=== PATIENT | male | born 1970 | race Caucasian/White ===

== ENCOUNTER 2016-06-27 19:27 | Emergency (ER) | payer MEDICAID ==
[2016-06-27 19:50] VITALS: RESP 20
--- NOTE | 2016-06-27 20:09 | EDPHY ---
H & P Stated Complaint: worsening back/legs pain Time Seen by Provider: 06/27/16 20:21 HPI/ROS: CHIEF COMPLAINT: Low back pain HISTORY OF PRESENT ILLNESS: This patient is a 45 year old male who presents to the Emergency Department complaining of an exacerbation of his chronic low back pain (attributed to stenosis) beginning two days ago after awkwardly closing the fonseca of his car. He describes his pain as burning and radiating bilaterally to both the anterior and posterior aspects of his thighs. He notes a "fiery" paresthesia to his right foot. No new weakness. He reports difficulty emptying his bladder immediately after the onset of pain and feels that this was secondary to the pain. He denies ongoing urinary complaints and feels that he is emptying his bladder fully. No problems with bowel control. No diarrhea, vomiting, or recent fever. He treats his chronic pain with IR morphine and oxycodone BID which had effectively alleviated his pain prior to this recent exacerbation. He also takes valium regularly. He is followed by a physician at [facility]. REVIEW OF SYSTEMS: A ten point review of systems was performed and is negative with the exception of the items mentioned in the HPI. 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 Not . He lives with his mother. - Physical Exam Exam: General Appearance: Alert. Vital signs reviewed. Blood pressure 140/83 Eyes: Pupils equal and round, no conjunctival injection, no discharge. Anicteric. ENT, Mouth: Mucous membranes are moist, no oropharyngeal erythema or edema. Neck: No lymphadenopathy, supple. Respiratory: Lungs are clear to auscultation; no wheezes, rales, or rhonchi. Cardiovascular: Regular rate and rhythm; no murmur, rub, or gallop. Gastrointestinal: Abdomen is soft and nontender, no masses or organomegaly, bowel sounds normal. Skin: Warm and dry, no rashes on exposed skin, normal color. Back: Lumbar spine tenderness to palpation that extends across back at the level of his waist. No bony point tenderness. No CVAT. Extremities: No lower extremity edema, no calf tenderness or swelling. Neurological: Alert and oriented. Moving all four extremities equally. Strength is 5 over 5 bilaterally with testing of all major motor groups. Decreased light touch lateral right thigh; sensation is otherwise intact. Deep tendon reflexes are 2+ in the knees and 1+ in the ankles bilaterally. No clonus. Psychiatric: Normal affect. Constitutional: Initial Vital Signs Temperature (C) 37.1 C 06/27/16 19:47 Heart Rate 85 06/27/16 19:47 Respiratory Rate 20 06/27/16 19:47 Blood Pressure 140/83 H 06/27/16 19:47 O2 Sat (%) 95 06/27/16 19:47 O2 Delivery Mode Room Air Allergies/Adverse Reactions: No Known Allergies Allergy (Unverified 06/27/16 19:45) Home Medications: Medication Instructions Recorded morphINE IR [morphINE IR 30 mg 30 mg PO 07/07/12 (RX)] Morphine Sulfate Cr 03/30/15 Valium 03/30/15 methylPREDNISolone [Medrol Dose 4 mg PO AD #1 ea 06/27/16 Andres] Medical Decision Making ED Course/Re-evaluation: Will proceed with bedside ultrasound of the bladder to ensure that the patient is emptying his bladder fully. Minimal post void residual. I discussed with the patient my recommendation for a Medrol dose pack and continue taking his Valium and pain medications as prescribed. He is agreeable to this. Neurologic exam is normal with the exception of a slight decrease in light touch over his lateral right foot. There is no weakness. I do not think that imaging is needed today. Differential Diagnosis: DDX of back pain considered including but not limited to musculoskeletal back pain, herniated disc, radiculopathy, infection, UTI, ureterolithiasis. Departure - Departure Disposition: Home, Routine, Self-Care Clinical Impression: Chronic low back pain Condition: Good Instructions: Chronic Back Pain (ED) Additional Instructions: 1. Take the Medrol dose pack as prescribed. 2. Follow-up with Dr. Huber this week for further evaluation. 3. Return to the Emergency Department immediately if you lose control of your bowels or urinate on yourself, are unable to walk or find yourself dragging one or both of your feet when attempting to do so, are unable to have an erection, or if you experience severe, uncontrollable back pain. Referrals: Heidi Huber MD [Primary Care Provider] - As per Instructions Prescriptions: methylPREDNISolone [Medrol Dose Andres] 4 mg PO AD #1 ea Report Scribed for: Danyell Krueger Report Scribed by: Tammie Antonio Date of Report: 06/27/16 Time of Report: 20:24 Physician Review and Approval Statement: 06/27/16 20:09 Portions of this note were transcribed by the pesticide use medical coordinator. I, Dr. Danyell Krueger, personally performed the history, physical exam, and medical decision- making; and confirmed the accuracy of the information in the transcribed note.
[2016-06-27 21:11] VITALS: BP 140/72; PULSE 71; TEMP 98.1; O2SAT 94
== END 2016-06-27 21:11 | disposition home or self-care (01) ==
DX: M54.5 Low back pain (principal); G89.29 Other chronic pain; F17.200 Nicotine dependence, unspecified, uncomplicated

== ENCOUNTER 2016-11-14 12:06 | Day surgery (SDC) | payer MEDICAID ==
[~2016-11-14 12:06] MED LIST: NS 1,000 ML IV SCH
[2016-11-14] MEDS ORDERED: FLUMAZENIL 0.5 MG/5 ML MDV IVP ONE (12:23)
[2016-11-14] MEDS ORDERED: NALOXONE HCL 0.4 MG/ML INJ ONE (12:23)
[2016-11-14] MEDS ORDERED: MIDAZOLAM 2 MG/2 ML VIAL ONE (12:24)
[2016-11-14] MEDS ORDERED: fentaNYL 100 MCG/2 ML INJ ONE (12:24)
[2016-11-14] MEDS ORDERED: TRIAMCINOLONE ACETONIDE 200 MG/5 ML MDV IM ONE (13:48)
[2016-11-14] MEDS ORDERED: IOPAMIDOL (ISOVUE-M 300) 15 ML VIAL ONE (13:48)
== END 2016-11-14 15:04 | disposition home or self-care (01) ==
LOC: FIMAGING 12:06
PROVIDERS: ATTEND Neurological Surgery
PROC: 3E0S33Z Introduction of Anti-inflammatory into Epidural Space, Percutaneous Approach (ICD-10-PCS; principal; 2016-11-14 13:56)
DX: M54.16 Radiculopathy, lumbar region (principal); Z96.652 Presence of left artificial knee joint
CPT/HCPCS: J2250; J2310; J3010; J3301; Q9967

== ENCOUNTER 2018-06-10 13:29 | Emergency (ER) | payer MEDICAID ==
[2018-06-10 13:38] VITALS: BP 130/75
--- NOTE | 2018-06-10 14:26 | EDPHY ---
H & P Stated Complaint: Chronic neck/back pain. Needs more morphine;state appt w/pain mgt Thurs Time Seen by Provider: 06/10/18 14:26 - Personal History Current Tetanus Diphtheria and Acellular Pertussis (TDAP): Yes - Medical/Surgical History Hx Asthma: No Hx Chronic Respiratory Disease: No Hx Diabetes: No Hx Cardiac Disease: No Hx Renal Disease: No Hx Cirrhosis: No Hx Alcoholism: No Hx HIV/AIDS: No Hx Splenectomy or Spleen Trauma: No Other PMH: ARTHRITIS, CHRONIC "JOINT PROBLEMS," SPINAL STENOSIS. chronic back/ neck pain - Social History Smoking Status: Current every day smoker Constitutional: Initial Vital Signs Temperature (C) 36.8 C 06/10/18 13:30 Heart Rate 81 06/10/18 13:30 Respiratory Rate 16 06/10/18 13:30 Blood Pressure 130/75 H 06/10/18 13:30 O2 Sat (%) 96 06/10/18 13:30 O2 Delivery Mode Room Air Allergies/Adverse Reactions: No Known Allergies Allergy (Verified 06/10/18 13:34) Home Medications: Medication Instructions Recorded morphINE IR [morphINE IR 30 mg 30 mg PO TID 07/07/12 (RX)] tiZANidine HCL [Zanaflex 2MG (*)] 2 mg PO 06/10/18 Medical Decision Making ED Course/Re-evaluation: CHIEF COMPLAINT: Requesting refill of chronic pain medicine HISTORY OF PRESENT ILLNESS: 47-year-old male who has chronic neck and lower back pain and even some thoracic pain. He states that he is in between pain doctors. He has an appointment at the [facility] coming up this week. He states that his PCP wrote for some pain meds but only a week's worth and is not comfortable writing for any more pain meds. He is asking me for 120 morphine sulfate 30 mg tablets. He has been without pain meds for several days. REVIEW OF SYSTEMS: A comprehensive 10 system review of systems is otherwise negative aside from elements mentioned in the history of present illness and medical decision making. PHYSICAL EXAM: HR, BP, O2 Sat, RR. Temp noted General Appearance: Alert, well hydrated, appropriate, and non-toxic appearing. Head: Atraumatic without scalp tenderness or obvious injury Eyes: Pupils equal, round, reactive to light and accommodation, EOMI, no trauma , no injection. Ears: Clear bilaterally, no perforation, normal landmarks Nose: Atraumatic, no rhinorrhea, clear. Throat: There is no erythema or exudates, no lesions, normal tonsils, mucus membranes moist. Neck: Supple, 2+ carotid upstroke, nontender, no lymphadenopathy. Respiratory: No retractions, no distress, no wheezes, and no accessory muscle use. Lungs are clear to auscultation bilaterally. Cardiovascular: Regular rate and rhythm, no murmurs, rubs, or gallops. Bilateral carotid, radial, dorsalis pedis, and posterior tibial pulses intact. Good capillary refill all extremities. Gastrointestinal: Abdomen is soft, nontender, non-distended, no masses, no rebound, no guarding, no peritoneal signs. Musculoskeletal: Normal active ROM of all extremities, atraumatic. Neurological: Alert, appropriate, and interactive. The patient has normal DTRs and non-focal cranial nerves, motor, sensory, and cerebellar exam. Skin: No rashes, good turgor, no nodules on palpation. Past medical history: Chronic pain Past surgical history: Noncontributory Family history: Noncontributory Social history: Single, does not abuse tobacco drugs or alcohol DIFFERENTIAL DIAGNOSIS: The differential diagnosis for the patient's back pain included but was not limited to musculo-skeletal pain, epidural abscess, herniated disk, spinal fracture, and intra-abdominal causes including urinary system. MEDICAL DECISION MAKING: This patient has chronic musculoskeletal back pain. He is requesting a chronic pain med refill. I am not comfortable refilling this patient's pain medicine. His primary care physician is not even comfortable refilling his pain medicine. He is asking for an exorbitant amount of medicine. He will have to be managed through the pain clinic and unfortunately he will have to continue doing what he has been able to do the last several days which is to use ibuprofen and [id number] type remedies. Departure - Departure Disposition: Home, Routine, Self-Care Clinical Impression: Medicine refill Condition: Good Instructions: Medicine Refill (ED) Additional Instructions: Keep her appointment with the [facility]. Check in with her PCP tomorrow to see if that person will write you for additional pain medicine.
== END 2018-06-10 14:53 | disposition home or self-care (01) ==
DX: Z76.0 Encounter for issue of repeat prescription (principal); M54.2 Cervicalgia; M54.5 Low back pain; G89.29 Other chronic pain

== ENCOUNTER 2018-07-05 21:04 | Emergency (ER) | payer MEDICAID ==
--- NOTE | 2018-07-05 21:59 | EDPHY ---
H & P Stated Complaint: REPORTS 2 SZ TODAY, DENIES ETOH USE, WEANING OFF PAIN MEDS Time Seen by Provider: 07/05/18 21:48 HPI/ROS: Chief Complaint: Seizure HPI: A 47-year-old male with a history of chronic pain who is currently on only Tinazadine but did take 4 Ultram over the course today. Patient had 2 witnessed episodes of tonic-clonic motor activity and loss of consciousness. These were witnessed by his mother with whom he lives. States that there he was standing in the kitchen this morning in speaking with her. He then rolled his eyes back and began shaking his arms. He fell to the ground and continued to shake briefly and then was unresponsive for a few minutes. He was very confused after this. He then returned to baseline. He had a repeat episode 830 this evening which was very similar. He was standing, rolled his eyes back generalized shaking and fell to the ground. He did hit his head on his initial fall. Does not have a history of seizures in the past. He denies taking anything today other than the 10 as a [place] and the Ultram. No recent illness. No fevers or chills. No nausea or vomiting. Denies any other ingestions. ROS: 10 systems were reviewed and were negative except those elements noted in the HPI. PMH: Chronic pain Social History: No smoking, no alcohol, no recreational drug use Family History: non-contributory Physical Exam: Gen: Awake, Alert, No Distress HEENT: Nose: no rhinorrhea Eyes: PERRLA, EOMI Mouth: Moist mucosa Neck: Supple, no JVD Chest: nontender, lungs clear to auscultation Heart: S1, S2 normal, no murmur Abd: Soft, non-tender, no guarding Back: no CVA tenderness, no midline tenderness Ext: no edema, non-tender Skin: no rash Neuro: CN II-XII intact, Sensation grossly intact, Strength 5/5 in bilateral upper and lower extremities - Personal History Current Tetanus/Diphtheria Vaccine: Unsure Current Tetanus Diphtheria and Acellular Pertussis (TDAP): Unsure - Medical/Surgical History Hx Asthma: No Hx Chronic Respiratory Disease: No Hx Diabetes: No Hx Cardiac Disease: No Hx Renal Disease: No Hx Cirrhosis: No Hx Alcoholism: No Hx HIV/AIDS: No Hx Splenectomy or Spleen Trauma: No Other PMH: ARTHRITIS, CHRONIC "JOINT PROBLEMS," SPINAL STENOSIS. chronic back/ neck pain - Social History Smoking Status: Current every day smoker Constitutional: Initial Vital Signs Temperature (C) 36.7 C 07/05/18 21:07 Heart Rate 102 H 07/05/18 21:07 Respiratory Rate 20 07/05/18 21:07 Blood Pressure 140/84 H 07/05/18 21:07 O2 Sat (%) 90 L 07/05/18 21:07 O2 Delivery Mode Room Air O2 (L/minute) 2 Allergies/Adverse Reactions: No Known Allergies Allergy (Verified 07/05/18 21:12) Home Medications: Medication Instructions Recorded morphINE IR [morphINE IR 30 mg 30 mg PO TID 07/07/12 (RX)] tiZANidine HCL [Zanaflex 2MG (*)] 2 mg PO 06/10/18 levETIRAcetam [Keppra] 500 mg PO BID #60 tablet 07/06/18 Medical Decision Making - Diagnostics Imaging Results: Imaging Impressions Head CT 07/05/18 21:58 Impression: 1. Negative. No acute intracranial hemorrhage, mass, or discernible etiology for seizure activity. 2. 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 Findings discussed with Emergency Department physician, Michael Faria MD at 07/05/2018 22:33. ED Course/Re-evaluation: CT scan of the brain is normal. Laboratory evaluations unremarkable. I have discussed with on-call neurologist have [facility]. He is recommending to check a tox screen. If the tox screen is negative will start the patient on Keppra 500 mg twice a day. Patient will follow up with Neurology for further evaluation for new onset seizures. U tox is negative. Will start the patient on Keppra. Refer for outpatient neurology follow-up. Patient is awake alert here. Observed for 5 hr. No further seizure activity. - Data Points Laboratory Results: Laboratory Results 07/05/18 21:47 07/05/18 21:47 07/06/18 07/05/18 07/05/18 02:30 21:47 21:47 WBC 8.60 10^3/uL 10^3/uL (3.80-9.50) RBC 4.44 10^6/uL 10^6/uL (4.40-6.38) Hgb 14.2 g/dL g/dL (13.7-17.5) Hct 42.7 % % (40.0-51.0) MCV 96.2 fL fL (81.5-99.8) MCH 32.0 pg pg (27.9-34.1) MCHC 33.3 g/dL g/dL (32.4-36.7) RDW 13.3 % % (11.5-15.2) Plt Count 206 10^3/uL 10^3/uL (150-400) MPV 9.7 fL fL (8.7-11.7) Neut % (Auto) 60.1 % % (39.3-74.2) Lymph % (Auto) 27.3 % % (15.0-45.0) [place] % (Auto) 9.1 % % (4.5-13.0) Eos % (Auto) 2.4 % % (0.6-7.6) Baso % (Auto) 0.6 % % (0.3-1.7) Nucleat RBC Rel Count 0.0 % % (0.0-0.2) Absolute Neuts (auto) 5.17 10^3/uL 10^3/uL (1.70-6.50) Absolute Lymphs (auto) 2.35 10^3/uL 10^3/uL (1.00-3.00) Absolute Monos (auto) 0.78 10^3/uL 10^3/uL (0.30-0.80) Absolute Eos (auto) 0.21 10^3/uL 10^3/uL (0.03-0.40) Absolute Basos (auto) 0.05 10^3/uL 10^3/uL (0.02-0.10) Absolute Nucleated RBC 0.00 10^3/uL 10^3/uL (0-0.01) Immature Gran % 0.5 % % (0.0-1.1) Immature Gran # 0.04 10^3/uL 10^3/uL (0.00-0.10) Sodium 138 mEq/L mEq/L (135-145) Potassium 5.0 mEq/L mEq/L (3.5-5.2) Chloride 100 mEq/L mEq/L (97-110) Carbon Dioxide 28 mEq/l mEq/l (22-31) Anion Gap 10 mEq/L mEq/L (6-14) BUN 13 mg/dL mg/dL (7-23) Creatinine 0.7 mg/dL mg/dL (0.7-1.3) Estimated GFR > 60 Glucose 89 mg/dL mg/dL (70-100) Calcium 9.4 mg/dL mg/dL (8.5-10.4) Specimen Hemolysis 178 Urine Opiates Screen NEGATIVE (NEGATIVE) Urine Barbiturates NEGATIVE (NEGATIVE) Ur Phencyclidine Scrn NEGATIVE (NEGATIVE) Ur Amphetamine Screen NEGATIVE (NEGATIVE) U Benzodiazepines Scrn NEGATIVE (NEGATIVE) Urine Cocaine Screen NEGATIVE (NEGATIVE) U Marijuana (THC) Screen NEGATIVE (NEGATIVE) Medications Given: Discontinued Medications Sodium Chloride (Ns) 1,000 mls @ 0 mls/hr IV EDNOW ONE; Wide Open PRN Reason: Protocol Stop: 07/06/18 01:29 Last Admin: 07/06/18 01:00 Dose: 1,000 mls Sodium Chloride (Ns) 1,000 mls @ 0 mls/hr IV EDNOW ONE; Wide Open PRN Reason: Protocol Stop: 07/06/18 01:29 Last Admin: 07/06/18 01:30 Dose: 1,000 mls Departure - Departure Disposition: Home, Routine, Self-Care Clinical Impression: Seizure Condition: Good Instructions: New-Onset Seizure in Adults (ED) Additional Instructions: Please start Keppra 500 mg twice a day. Follow up with neurologist in 3-4 days for further evaluation. Return emergency department for further seizures. Referrals: Kishor Sanon MD [Medical Doctor] - As per Instructions Prescriptions: levETIRAcetam [Keppra] 500 mg PO BID #60 tablet
[2018-07-05 22:16] LABS: PLATELET COUNT 206 10^3/uL (150-400)
[2018-07-06] MEDS ORDERED: NS 1,000 ML IV ONE ×2 (01:28)
[2018-07-06] MEDS ORDERED: levETIRAcetam 500 MG TAB PO ONE (02:47)
[2018-07-06 03:02] VITALS: BP 122/82
== END 2018-07-06 03:01 | disposition home or self-care (01) ==
DX: R56.9 Unspecified convulsions (principal); M19.90 Unspecified osteoarthritis, unspecified site; E86.9 Volume depletion, unspecified; Z79.899 Other long term (current) drug therapy
CPT/HCPCS: 80305

== ENCOUNTER 2018-08-02 11:28 | Emergency (ER) | payer MEDICAID ==
[2018-08-02] MEDS ORDERED: ONDANSETRON 4 MG/2 ML VIAL IVP ONE (11:58)
[2018-08-02] MEDS ORDERED: HYDROmorphONE/DILAUDID 2 MG/ML INJ IVP ONE (11:58)
[2018-08-02] MEDS ORDERED: NS 1,000 ML IV ONE (11:58)
--- NOTE | 2018-08-02 12:03 | EDPHY ---
General Time Seen by Provider: 08/02/18 11:46 Narrative: CLINICAL IMPRESSION: Right lower quadrant abdominal pain, constipation, groin strain ASSESSMENT/PLAN: 47-year-old male presents to the emergency department for approximately 3-4 days of right lower quadrant and inguinal pain. Patient has no clinical signs of incarcerated or strangulated hernia, testicular torsion, testicular mass, and pain is reproducible to palpation along the inguinal canal and worsened by abduction against resistance. Patient admits to straining the inguinal muscles when he has leg spasms at night. Labs are reassuring with no leukocytosis, renal insufficiency, electrolyte imbalance or metabolic disturbance. CT abdomen and pelvis shows no evidence of acute appendicitis, small-bowel obstruction, perforated viscus, or inguinal hernia. Patient was given muscle relaxers for presumed groin strain as well as [id number] recommendations for constipation. Encouraged PCP recheck, referrals given, warning signs return to ED outlined discharge. DIFFERENTIAL DX: Abdominal pain includes but not limited to acute appendicitis, diverticulitis, cholecystitis, pancreatitis, SBO, gastroenteritis, constipation ED PROCEDURES: See lab and/or imaging results below ED COURSE: 12:00 p.m.: Patient seen assessed by myself. Plan, IV, analgesics, antiemetics , labs, CT abdomen and pelvis. 1:20 p.m.: CT read by Dr. Lara, negative for acute appendicitis, inguinal hernia, small bowel obstruction. Moderate amount of right-sided stool noted. No acute surgical emergency. Labs are unremarkable. CHIEF COMPLAINT: Right lower quadrant abdominal and pelvic pain HPI: 47-year-old male with past medical history of arthritis, spinal stenosis, joint pain, and seizures, presents to the emergency department from urgent care for evaluation of right lower quadrant abdominal pain. Patient reports he was having some inguinal pain for the last several weeks that has been getting progressively worse over the last 3-4 days. He has been unable to keep anything down since last night. No reported fevers or chills. Pain does radiate slightly into the right lower pelvis but does not cause him testicular pain or swelling. He notes his abdomen is distended and has not had a bowel movement for the last 4 days. He also reports inability to pass flatus. He reports normally he is relatively regular in his bowel movements. No prior abdominal surgery. He was seen at urgent care and sent immediately to the ED. PAST MEDICAL HISTORY: Arthritis, spinal stenosis, joint pain, seizures See nurse/triage notes for additional history if applicable Pertinent Past Surgical History: None reported Family History: Noncontributory Social History: Here with his family member REVIEW OF SYSTEMS: All other systems negative Constitutional: No fever, no chills, positive for appetite change. Cardiovascular: No chest pain, no palpitations. Respiratory: No cough, no shortness of breath. Gastrointestinal: Positive for right lower quadrant abdominal pain, positive for vomiting, positive for lack of bowel movement and inability to pass flatus diarrhea. Genitourinary: No hematuria, dysuria, flank pain, pelvic pain Musculoskeletal: No back pain, joint swelling, joint pain, myalgias. Skin: No rashes, color change. Neurological: No headache, dizziness, weakness. PHYSICAL EXAM: General Appearance: Alert, oriented, appropriate, cooperative, appears uncomfortable, well hydrated, non-toxic appearing, mild hypertension, no hypoxia. HEENT: Oropharynx clear very dry mucous membranes with thick saliva, is no erythema or exudates, no tonsillar hypertrophy or asymmetry. Dentition without abnormality. Respiratory: There are no retractions, lungs are clear to auscultation. Cardiac: Regular rate and rhythm, no murmurs or gallops. Gastrointestinal: Abdomen is soft, generalized tenderness, worse to the right lower quadrant associated with rebound tenderness. No palpable inguinal hernia or obvious signs of incarceration or strangulation. Generalized abdominal distension but nonrigid. bowel sounds hypoactive no masses/hernia, no rigidity , guarding or focal peritoneal findings. exam. Patient is circumcised. No testicular or scrotal swelling. No palpable inguinal hernia. Reproducible pain along the adductor longus muscle at the insertion point on the pubis. Neurological: [ Alert and oriented x 3, Skin: Warm, dry, no rashes, no nodules on palpation. Musculoskeletal: Extremities are symmetrical, full range of motion, no tenderness, deformity, swelling, or erythema. MEDICAL DECISION MAKING: Patient was seen independently. Secondary supervising physician at time of evaluation was Dr. Law . Diagnosis: Right-sided constipation, right groin strain . New, requires workup Summary: See Assessment and Plan for summary of ED visit Clinical lab tests: ordered / reviewed. Independent visualization of images, tracing, or specimens: Yes. Decision to obtain medical records or history from someone other than the patient: No Review / Summarize previous medical records: None available Discussed patient with another provider: Radiology Patient Progress: Stable for discharge. - Diagnostics Imaging Results: Imaging Impressions Abdomen CT 08/02/18 11:59 Impression: 1. No CT findings for appendicitis. Moderate constipation in the right-sided colon. 2. No evidence for hydronephrosis or ureteral calculus. 3. Mild degenerative disk and degenerative joint disease in the lower lumbar spine. Results called and discussed with Yung Rand on 08/02/2018, 1325 hours. - History Smoking Status: Current every day smoker - Objective Vital Signs: Initial Vital Signs Temperature (C) 36.8 C 08/02/18 11:33 Heart Rate 96 08/02/18 11:33 Respiratory Rate 16 08/02/18 11:33 Blood Pressure 134/95 H 08/02/18 11:33 O2 Sat (%) 96 08/02/18 11:33 O2 Delivery Mode Room Air O2 (L/minute) 2 Allergies/Adverse Reactions: No Known Allergies Allergy (Verified 08/02/18 11:32) Home Medications: Medication Instructions Recorded tiZANidine HCL [Zanaflex 2MG (*)] 2 mg PO 06/10/18 levETIRAcetam [Keppra] 500 mg PO BID #60 tablet 07/06/18 Aspirin 08/02/18 Benadryl 08/02/18 Cyclobenzaprine [Flexeril] 10 mg PO TID #15 tab 08/02/18 Tylenol 08/02/18 Laboratory Results: Laboratory Results 08/02/18 11:50 08/02/18 11:50 08/02/18 08/02/18 11:50 11:50 WBC 8.75 10^3/uL 10^3/uL (3.80-9.50) RBC 4.88 10^6/uL 10^6/uL (4.40-6.38) Hgb 15.8 g/dL g/dL (13.7-17.5) Hct 47.1 % % (40.0-51.0) MCV 96.5 fL fL (81.5-99.8) MCH 32.4 pg pg (27.9-34.1) MCHC 33.5 g/dL g/dL (32.4-36.7) RDW 13.2 % % (11.5-15.2) Plt Count 201 10^3/uL 10^3/uL (150-400) MPV 9.5 fL fL (8.7-11.7) Neut % (Auto) 62.9 % % (39.3-74.2) Lymph % (Auto) 25.5 % % (15.0-45.0) [place] % (Auto) 8.2 % % (4.5-13.0) Eos % (Auto) 2.3 % % (0.6-7.6) Baso % (Auto) 0.6 % % (0.3-1.7) Nucleat RBC Rel Count 0.0 % % (0.0-0.2) Absolute Neuts (auto) 5.51 10^3/uL 10^3/uL (1.70-6.50) Absolute Lymphs (auto) 2.23 10^3/uL 10^3/uL (1.00-3.00) Absolute Monos (auto) 0.72 10^3/uL 10^3/uL (0.30-0.80) Absolute Eos (auto) 0.20 10^3/uL 10^3/uL (0.03-0.40) Absolute Basos (auto) 0.05 10^3/uL 10^3/uL (0.02-0.10) Absolute Nucleated RBC 0.00 10^3/uL 10^3/uL (0-0.01) Immature Gran % 0.5 % % (0.0-1.1) Immature Gran # 0.04 10^3/uL 10^3/uL (0.00-0.10) Sodium 138 mEq/L mEq/L (135-145) Potassium 3.8 mEq/L mEq/L (3.5-5.2) Chloride 102 mEq/L mEq/L (97-110) Carbon Dioxide 27 mEq/l mEq/l (22-31) Anion Gap 9 mEq/L mEq/L (6-14) BUN 19 mg/dL mg/dL (7-23) Creatinine 0.9 mg/dL mg/dL (0.7-1.3) Estimated GFR > 60 Glucose 75 mg/dL mg/dL (70-100) Calcium 9.6 mg/dL mg/dL (8.5-10.4) Medications Given: Discontinued Medications Hydromorphone HCl (Dilaudid) 1 mg IVP EDNOW ONE Stop: 08/02/18 11:59 Last Admin: 08/02/18 12:31 Dose: 1 mg Sodium Chloride (Ns) 1,000 mls @ 0 mls/hr IV EDNOW ONE; Wide Open PRN Reason: Protocol Stop: 08/02/18 11:59 Last Admin: 08/02/18 12:30 Dose: 1,000 mls Ondansetron HCl (Zofran) 4 mg IVP EDNOW ONE Stop: 08/02/18 11:59 Last Admin: 08/02/18 12:31 Dose: 4 mg Departure - Departure Disposition: Home, Routine, Self-Care Clinical Impression: Constipation Qualifiers: Constipation type: other constipation type Qualified Code(s): K59.09 - Other constipation Inguinal muscle strain Qualifiers: Encounter type: initial encounter Qualified Code(s): S39.013A - Strain of muscle, fascia and tendon of pelvis, initial encounter Condition: Good Instructions: Constipation (ED) Additional Instructions: DISCHARGE INSTRUCTIONS FROM YOUR DOCTOR Thank you for visiting our emergency department today. You were treated by a physician nurses medical assistants phlebotomists today and your case was reviewed with our ED Attending physician. Please keep in mind that discharge from the emergency department does not mean that there is nothing wrong - it simply means that we have not identified an emergency condition that requires further evaluation or treatment in the hospital. You should always plan to follow up with primary care for re- evaluation of your condition in the next 2-3 days. If you have been referred to a specialist, please call as soon as possible (today or tomorrow) to schedule your follow up appointment at the appropriate time. [CT SCAN TODAY SHOWS NO EVIDENCE OF ACUTE APPENDICITIS, INGUINAL HERNIA, BOWEL OBSTRUCTION, OR OTHER ACUTE SURGICAL EMERGENCY. YOU DO HAVE A SIGNIFICANT AMOUNT OF STOOL ON THE RIGHT SIDE OF THE COLON WHICH COULD BE CAUSING YOUR DISCOMFORT. LAB WORK IS REASSURING. NO CLINICAL EVIDENCE OF TESTICULAR TORSION OR TESTICULAR MASS. WE RECOMMEND TRYING MIRALAX, INCREASING YOUR FIBER , FRUITS, VEGETABLES, WATER AND EXERCISE. PLEASE FOLLOW-UP WITH PRIMARY CARE IN 24 HR TO RECHECK. IF YOU DO NOT HAVE A PRIMARY CARE REFERRAL WAS GIVEN. PLEASE RETURN TO THE EMERGENCY DEPARTMENT FOR WORSENING PAIN, TESTICULAR PAIN, SWELLING OR REDNESS, FEVER OR ANY OTHER CONCERNS.] People present with illnesses and injuries in different ways, and it is always possible that we have missed something. You may always return for re-evaluation if symptoms worsen or if they are not improving or if you develop new/different symptoms. Again, thank you for choosing our emergency department. We hope that you feel better. Referrals: NONE *PRIMARY CARE P,. [Primary Care Provider] - As per Instructions Massimo Webb MD [Medical Doctor] - 1 day without fail Prescriptions: Cyclobenzaprine [Flexeril] 10 mg PO TID #15 tab
[2018-08-02 12:04] LABS: PLATELET COUNT 201 10^3/uL (150-400)
[2018-08-02] MEDS ORDERED: IOPAMIDOL (ISOVUE-300) 100 ML BTL ONE (12:05)
[2018-08-02] MEDS ORDERED: HYDROmorphONE/DILAUDID 1 MG/ML INJ ONE (12:27)
[2018-08-02 13:51] VITALS: BP 122/83
== END 2018-08-02 13:53 | disposition home or self-care (01) ==
LOC: SUPCPDRO 11:28
DX: S39.013A Strain of muscle, fascia and tendon of pelvis, initial encounter (principal); K59.09 Other constipation; X58.XXXA Exposure to other specified factors, initial encounter; Y92.9 Unspecified place or not applicable; Y99.9 Unspecified external cause status; Y93.9 Activity, unspecified
CPT/HCPCS: 96374; J1170; J2405; Q9967

== ENCOUNTER → 2018-08-07 | Outpatient (CLI) | payer MEDICAID ==
[~2018-08-07] MED LIST changes: +GADOBUTROL 10 ML VIAL IVP ONE; -NS 1,000 ML IV SCH
== END ==
LOC: FIMAGING 15:36
PROVIDERS: ATTEND Psychiatry & Neurology Neurology
DX: R56.9 Unspecified convulsions (principal)
CPT/HCPCS: A9585

== ENCOUNTER 2018-11-10 17:19 | Inpatient (IN) | payer MEDICAID ==
--- NOTE | 2018-11-10 17:27 | EDPHY ---
H & P Stated Complaint: Hx seizures, 5 "grand mal" today starting at 0330, BIB friend for eval. Time Seen by Provider: 11/10/18 17:26 - Medical/Surgical History Hx Asthma: No Hx Chronic Respiratory Disease: No Hx Diabetes: No Hx Cardiac Disease: No Hx Renal Disease: No Hx Cirrhosis: No Hx Alcoholism: No Hx HIV/AIDS: No Hx Splenectomy or Spleen Trauma: No Other PMH: ARTHRITIS, CHRONIC "JOINT PROBLEMS," SPINAL STENOSIS, seizures, chronic back/neck pain - Social History Smoking Status: Current every day smoker Constitutional: Initial Vital Signs Temperature (C) 37.2 C 11/10/18 17:23 Heart Rate 120 H 11/10/18 17:23 Respiratory Rate 18 11/10/18 17:23 Blood Pressure 137/88 H 11/10/18 17:23 O2 Sat (%) 94 11/10/18 17:23 O2 Delivery Mode Nasal Cannula O2 (L/minute) 3 Allergies/Adverse Reactions: No Known Allergies Allergy (Verified 08/02/18 11:32) Home Medications: Medication Instructions Recorded Acetaminophen [Tylenol ES 500 mg 500 - 1,000 mg PO Q8H PRN 11/10/18 (*)] Herbals/Supplements -Info Only 1 ea PO DAILY 11/10/18 levETIRAcetam [Keppra 500 mg (*)] 500 mg PO BID 11/10/18 Medical Decision Making - Diagnostics Imaging Results: Imaging Impressions Head CT 11/10/18 17:37 Impression: There is no acute intracranial abnormality identified on this unenhanced CT evaluation, or substantial change from previous studies in June or July. If there is further clinical concern regarding the patient's symptoms, MR imaging is suggested, if not otherwise contraindicated. Findings were discussed with Anthony Buenrostro MD at 19:22, on 11/10/2018. Imaging: Discussed imaging studies w/ geriatric assistant Radiologist, I viewed and interpreted images myself ED Course/Re-evaluation: CHIEF COMPLAINT: Seizure HISTORY OF PRESENT ILLNESS: The patient is a 48 y/o male with a history of seizures complaining of 5 "grand mal" seizures onset at 03:30 today. The patient started having seizures in June 2018 and was seen here and started on 500mg PO Keppra BID. After the seizure he was seen by Dr. Sanon and had a negative work up including numerous imaging studies. Today he has had five "grand mal" seizures and hit his head. He denies drugs or alcohol use. No fever, headache, body aches, lightheadedness, chest pain, heart palpitations, shortness of breath, cough, abdominal pain, urinary or bowel complaints, numbness, paresthesias. REVIEW OF SYSTEMS: A comprehensive 10 system review of systems is otherwise negative aside from elements mentioned in the history of present illness and medical decision making. PHYSICAL EXAM: HR, BP, O2 Sat, RR. Temp noted General Appearance: Tremulous right greater than left, alert, well hydrated, appropriate, and non-toxic appearing. Head: Atraumatic without scalp tenderness or obvious injury Eyes: Pupils equal, round, reactive to light and accommodation, EOMI, no trauma , no injection. Ears: Clear bilaterally, no perforation, normal landmarks Nose: Atraumatic, no rhinorrhea, clear. Throat: There is no erythema or exudates, no lesions, normal tonsils, mucus membranes moist. Neck: Supple, 2+ carotid upstroke, nontender, no lymphadenopathy. Respiratory: No retractions, no distress, no wheezes, and no accessory muscle use. Lungs are clear to auscultation bilaterally. Cardiovascular: Regular rate and rhythm, no murmurs, rubs, or gallops. Bilateral carotid, radial, dorsalis pedis, and posterior tibial pulses intact. Good capillary refill all extremities. Gastrointestinal: Abdomen is soft, nontender, non-distended, no masses, no rebound, no guarding, no peritoneal signs. Musculoskeletal: Normal active ROM of all extremities, atraumatic. Neurological: Alert, appropriate, and interactive. The patient has normal DTRs and non-focal cranial nerves, motor, sensory, and cerebellar exam. Skin: No rashes, good turgor, no nodules on palpation. Past medical history: Seizures, arthritis, spinal stenosis, chronic neck and back pain. Past surgical history: Not indicated Family history: Denies Social history: Lives in [place], single, does not abuse drugs or alcohol. DIAGNOSTICS/PROCEDURES/CRITICAL CARE TIME: Head CT: Negative. DIFFERENTIAL DIAGNOSIS: The differential diagnosis for the patient's seizure included but was not limited to status epilepticus, electrolyte abnormality, alcohol withdrawal, medication noncompliance, head injury, [employer] structural abnormality, and break through seizure. MEDICAL DECISION MAKING: The patient is a 48 y/o male with a history of seizures presenting for 5 "grand mal" seizures onset at 03:30 today. The patient started having seizures in June 2018 and was seen here and started on 500mg PO Keppra BID. After the seizure he was seen by Dr. Sanon and had a negative work up including numerous imaging studies. On exam he is tremulous, right greater than left. Labs ordered; 2mg IV Ativan and 1L IV NS administered. Patient will need to be admitted for status epilepticus. 1736: I consulted with the hospitalist service, Dr. Caldwell accepts admission of this patient for status epilepticus. Head CT ordered; neurology consult still pending. 173: Patient reports he is having another seizure; question PNES as he is awake during the seizure. 1741: I consulted with Dr. South, neurologist, regarding this patient. He agrees to consult on this patient during his admission. 1gm IV Keppra administered. Patient will need to increase his Keppra dosage to 1gm BID. 1840: Patient's labs are unremarkable; imaging still pending. He is ready to be transferred to the floor. 1926: I spoke with Dr. Gomes, radiologist, who reports that the head CT is negative. - Data Points Laboratory Results: Laboratory Results 11/10/18 17:30 11/10/18 17:30 11/10/18 11/10/18 11/10/18 17:52 17:30 17:30 WBC RBC Hgb POC Hgb 15.6 gm/dL gm/dL (13.7-17.5) Hct POC Hct 46 % % (40-51) MCV MCH MCHC RDW Plt Count MPV Neut % (Auto) Lymph % (Auto) [place] % (Auto) Eos % (Auto) Baso % (Auto) Nucleat RBC Rel Count Absolute Neuts (auto) Absolute Lymphs (auto) Absolute Monos (auto) Absolute Eos (auto) Absolute Basos (auto) Absolute Nucleated RBC Immature Gran % Immature Gran # POC Sodium 143 mEq/L mEq/L (135-145) Sodium 141 mEq/L mEq/L (135-145) POC Potassium 3.3 mEq/L mEq/L (3.3-5.0) Potassium 3.6 mEq/L mEq/L (3.5-5.2) POC Chloride 98 mEq/L mEq/L (97-110) Chloride 99 mEq/L mEq/L (97-110) Carbon Dioxide 30 mEq/l mEq/l (22-31) POC Total CO2 31 mEq/L mEq/L (22-31) Anion Gap 12 mEq/L mEq/L (6-14) POC BUN 19 mg/dL mg/dL (7-23) BUN 19 mg/dL mg/dL (7-23) Creatinine 0.9 mg/dL mg/dL (0.7-1.3) POC Creatinine 1.0 mg/dL mg/dL (0.7-1.3) Estimated GFR > 60 Glucose 87 mg/dL mg/dL (70-100) POC Glucose 83 mg/dL mg/dL (70-100) Calcium 9.8 mg/dL mg/dL (8.5-10.4) TSH 2.450 uIU/mL uIU/mL (0.465-4.680) 11/10/18 17:30 WBC 10.65 10^3/uL H 10^3/uL (3.80-9.50) RBC 4.60 10^6/uL 10^6/uL (4.40-6.38) Hgb 14.8 g/dL g/dL (13.7-17.5) POC Hgb Hct 43.4 % % (40.0-51.0) POC Hct MCV 94.3 fL fL (81.5-99.8) MCH 32.2 pg pg (27.9-34.1) MCHC 34.1 g/dL g/dL (32.4-36.7) RDW 12.8 % % (11.5-15.2) Plt Count 216 10^3/uL 10^3/uL (150-400) MPV 9.2 fL fL (8.7-11.7) Neut % (Auto) 57.4 % % (39.3-74.2) Lymph % (Auto) 27.6 % % (15.0-45.0) [place] % (Auto) 11.5 % % (4.5-13.0) Eos % (Auto) 2.3 % % (0.6-7.6) Baso % (Auto) 0.7 % % (0.3-1.7) Nucleat RBC Rel Count 0.0 % % (0.0-0.2) Absolute Neuts (auto) 6.11 10^3/uL 10^3/uL (1.70-6.50) Absolute Lymphs (auto) 2.94 10^3/uL 10^3/uL (1.00-3.00) Absolute Monos (auto) 1.23 10^3/uL H 10^3/uL (0.30-0.80) Absolute Eos (auto) 0.25 10^3/uL 10^3/uL (0.03-0.40) Absolute Basos (auto) 0.07 10^3/uL 10^3/uL (0.02-0.10) Absolute Nucleated RBC 0.00 10^3/uL 10^3/uL (0-0.01) Immature Gran % 0.5 % % (0.0-1.1) Immature Gran # 0.05 10^3/uL 10^3/uL (0.00-0.10) POC Sodium Sodium POC Potassium Potassium POC Chloride Chloride Carbon Dioxide POC Total CO2 Anion Gap POC BUN BUN Creatinine POC Creatinine Estimated GFR Glucose POC Glucose Calcium TSH Medications Given: Discontinued Medications Sodium Chloride (Ns) 1,000 mls @ 0 mls/hr IV EDNOW ONE; Wide Open PRN Reason: Protocol Stop: 11/10/18 17:32 Last Admin: 11/10/18 17:46 Dose: 1,000 mls Levetiracetam (Keppra (Premix)) 100 mls @ 400 mls/hr IV EDNOW ONE Stop: 11/10/18 17:56 Last Admin: 11/10/18 17:59 Dose: 100 mls Lorazepam (Ativan Injection) 2 mg IVP EDNOW ONE Stop: 11/10/18 17:32 Last Admin: 11/10/18 17:42 Dose: 2 mg Point of Care Test Results: Chemistry 11/10/18 17:52 POC Sodium 143 mEq/L mEq/L (135-145) POC Potassium 3.3 mEq/L mEq/L (3.3-5.0) POC Chloride 98 mEq/L mEq/L (97-110) POC Total CO2 31 mEq/L mEq/L (22-31) POC BUN 19 mg/dL mg/dL (7-23) POC Creatinine 1.0 mg/dL mg/dL (0.7-1.3) POC Glucose 83 mg/dL mg/dL (70-100) ISTAT H&H 11/10/18 17:52 POC Hgb 15.6 gm/dL gm/dL (13.7-17.5) POC Hct 46 % % (40-51) Departure - Departure Disposition: [facility] Inpatient Acute Clinical Impression: Status epilepticus Condition: Fair Referrals: eFlicita Blanchard MD [Primary Care Provider] - As per Instructions Report Scribed for: Anthony Buenrostro Report Scribed by: Nohelia Vivar Date of Report: 11/10/18 Time of Report: 17:27
[2018-11-10] MEDS ORDERED: LORazepam 2 MG/ML INJ IVP ONE (17:31)
[2018-11-10] MEDS ORDERED: NS 1,000 ML IV ONE (17:31)
[2018-11-10] MEDS ORDERED: levETIRAcetam 500 MG TAB PO ONE (17:34)
[2018-11-10] MEDS ORDERED: levETIRAcetam 1000MG/NACL 100 ML IV ONE (17:42)
[2018-11-10 17:46] LABS: PLATELET COUNT 216 10^3/uL (150-400)
[2018-11-10] MEDS ORDERED: LORazepam 2 MG/ML INJ ONE (17:53)
[2018-11-10] MEDS ORDERED: ONDANSETRON DISINTEGRATING 4 MG TAB PO PRN (18:33)
[2018-11-10] MEDS ORDERED: ONDANSETRON 4 MG/2 ML VIAL IVP PRN (18:33)
--- NOTE | 2018-11-10 18:34 | PDGENHP ---
History and Physical - Chief Complaint seizures - History of Present Illness 48yo M with history of chronic pain related to spinal degenerative disk disease , ? seizure disorder presents after having 5 seizures today. He is somewhat of a poor historian. States he was taking his dog out in his backyard and next thing he knew he was on the ground. He had hit his forehead. Did not lose control of bladder or bowels or have any tongue biting. Reportedly then had 4 additional similar episodes. Two were witnessed by his mother's friend and reported convulsive activity. She then brought him to the ED. He denies etoh or illicit drug use. No recent fevers, chills, or other infectious symptoms. Reports taking his keppra twice daily. He then admits that he has been having 3 "seizures" per week since June, when his first seizure was diagnosed. He has not told any medical providers about this. He is being admitted for further evaluation and management. Case discussed with ED physician Anthony Buenrostro. His first seizure was in June 2018 at which time he was evaluated in our ED. He had a non-con head CT that was negative. Neurology was consulted and started on keppra 500mg bid. He did see Dr Sanon once in June after his first seizure and had a brain MRI that was unremarkable. He has not had an EEG. Notably, he was just started on tramadol prior to his first seizure. He continues to tramadol several times per week. On review of PDMP, he has not been prescribed opioids or benzos since 04/2018 (was previously on MS contin, suboxone, valium). Upon arrival to the floor, patient admitted that he has been having suicidal and homicidal ideation for several weeks. He reports that he wants to kill his pain doctor that is no longer prescribing him pain meds and then by suicide by manager endoscopy. A stat TLC was called overhead. He will be transferring to the ICU and an M1 hold was placed due to danger to self and others. History Information - Allergies/Home Medication List Allergies/Adverse Reactions: No Known Allergies Allergy (Verified 08/02/18 11:32) Home Medications: Acetaminophen [Tylenol ES 500 mg (*)] 500 - 1,000 mg PO Q8H PRN 11/10/18 [Last Taken 11/09/18] Herbals/Supplements -Info Only 1 ea PO DAILY 11/10/18 [Last Taken 11/10/18] levETIRAcetam [Keppra 500 mg (*)] 500 mg PO BID 11/10/18 [Last Taken 11/10/18 09 :00] I have personally reviewed and updated: family history, medical history, social history, surgical history - Past Medical History Additional medical history: chronic pain with opioid dependence, spinal degenerative disk disease, prediabetes, ? seronegative spondyloarthropathy, ? seizure disorder - Surgical History Additional surgical history: left knee surgery - Family History Positive for: non-pertinent - Social History Smoking Status: Current every day smoker Alcohol Use: Sober (15 years) Drug Use: None Additional social history: Lives with his mother. Review of Systems Review of Systems: ROS: 10pt was reviewed & negative except for what was stated in HPI & below Physical Exam Physical Exam: Temp Pulse Resp BP Pulse Ox 37.2 C 114 H 20 137/88 H 92 11/10/18 17:23 11/10/18 18:01 11/10/18 18:01 11/10/18 17:23 11/10/18 18:01 O2 (L/minute) 3 Constitutional: uncomfortable Eyes: other (pupils dilated but symmetric and reactive) Ears, Nose, Mouth, Throat: moist mucous membranes, hearing normal, ears appear normal, no oral mucosal ulcers Cardiovascular: no murmur, rub, or gallop, tachycardia, No edema Respiratory: no respiratory distress, no rales or rhonchi, clear to auscultation Gastrointestinal: normoactive bowel sounds, soft, non-tender abdomen, no palpable masses Genitourinary: no bladder fullness, no bladder tenderness Skin: warm, normal color, no rashes or abrasions, no fluctuance, no induration, No mottled Musculoskeletal: other (apparent volition weakness of all extremities) Neurologic: AAOx3, other (severely tremulous) Psychiatric: anxious Lab Data & Imaging Review 11/10/18 17:30 11/10/18 17:30 WBC 10.65 10^3/uL (3.80-9.50) H 11/10/18 17:30 RBC 4.60 10^6/uL (4.40-6.38) 11/10/18 17:30 Hgb 14.8 g/dL (13.7-17.5) 11/10/18 17:30 POC Hgb 15.6 gm/dL (13.7-17.5) 11/10/18 17:52 Hct 43.4 % (40.0-51.0) 11/10/18 17:30 POC Hct 46 % (40-51) 11/10/18 17:52 MCV 94.3 fL (81.5-99.8) 11/10/18 17:30 MCH 32.2 pg (27.9-34.1) 11/10/18 17:30 MCHC 34.1 g/dL (32.4-36.7) 11/10/18 17:30 RDW 12.8 % (11.5-15.2) 11/10/18 17:30 Plt Count 216 10^3/uL (150-400) 11/10/18 17:30 MPV 9.2 fL (8.7-11.7) 11/10/18 17:30 Neut % (Auto) 57.4 % (39.3-74.2) 11/10/18 17:30 Lymph % (Auto) 27.6 % (15.0-45.0) 11/10/18 17:30 Traverse % (Auto) 11.5 % (4.5-13.0) 11/10/18 17:30 Eos % (Auto) 2.3 % (0.6-7.6) 11/10/18 17:30 Baso % (Auto) 0.7 % (0.3-1.7) 11/10/18 17:30 Nucleat RBC Rel Count 0.0 % (0.0-0.2) 11/10/18 17:30 Absolute Neuts (auto) 6.11 10^3/uL (1.70-6.50) 11/10/18 17:30 Absolute Lymphs (auto) 2.94 10^3/uL (1.00-3.00) 11/10/18 17:30 Absolute Monos (auto) 1.23 10^3/uL (0.30-0.80) H 11/10/18 17:30 Absolute Eos (auto) 0.25 10^3/uL (0.03-0.40) 11/10/18 17:30 Absolute Basos (auto) 0.07 10^3/uL (0.02-0.10) 11/10/18 17:30 Absolute Nucleated RBC 0.00 10^3/uL (0-0.01) 11/10/18 17:30 Immature Gran % 0.5 % (0.0-1.1) 11/10/18 17:30 Immature Gran # 0.05 10^3/uL (0.00-0.10) 11/10/18 17:30 POC Sodium 143 mEq/L (135-145) 11/10/18 17:52 Sodium 141 mEq/L (135-145) 11/10/18 17:30 POC Potassium 3.3 mEq/L (3.3-5.0) 11/10/18 17:52 Potassium 3.6 mEq/L (3.5-5.2) 11/10/18 17:30 POC Chloride 98 mEq/L (97-110) 11/10/18 17:52 Chloride 99 mEq/L (97-110) 11/10/18 17:30 Carbon Dioxide 30 mEq/l (22-31) 11/10/18 17:30 POC Total CO2 31 mEq/L (22-31) 11/10/18 17:52 Anion Gap 12 mEq/L (6-14) 11/10/18 17:30 POC BUN 19 mg/dL (7-23) 11/10/18 17:52 BUN 19 mg/dL (7-23) 11/10/18 17:30 Creatinine 0.9 mg/dL (0.7-1.3) 11/10/18 17:30 POC Creatinine 1.0 mg/dL (0.7-1.3) 11/10/18 17:52 Estimated GFR > 60 11/10/18 17:30 Glucose 87 mg/dL (70-100) 11/10/18 17:30 POC Glucose 83 mg/dL (70-100) 11/10/18 17:52 Calcium 9.8 mg/dL (8.5-10.4) 11/10/18 17:30 Interpretation: CT head: no acute abnormality Assessment & Plan Assessment: 48yo M with history of chronic pain related to spinal degenerative disk disease , ? seizure disorder presents after having 5 reported seizures today. Now in ICU due to SI/HI. Plan: 1. Possible seizures: I am not convinced that he is truly having seizures. CT head and prior brain MRI unremarkable except for benign arachnoid cyst. Non- focal neurologic exam. Benzo or alcohol withdrawal a possibility but he denies. - Neurology consulted - s/p 500mg IV keppra in ED, will continue keppra 500mg bid - Checking keppra level - Utox, serum ethyl alcohol level - Needs spot EEG - Ativan IV PRN for active seizures 2. Suicidal and homicidal ideation: He contracts for safety while in the hospital but plans to kill his prior pain doctor and then via suicide by manager endoscopy if he leaves. - M1 hold in place, transferred to ICU - Psychiatry consult 3. Chronic pain with opioid dependence - No opioids or benzos (except for seizure) - Tylenol, ibuprofen PRN 4. Anxiety - Will likely need to be started on medications for this while hospitalized VTE ppx: SCDs Code: full Dispo: admit to ICU I spent a total of 30 minutes of critical care time involving this patient.
[2018-11-10] MEDS ORDERED: NS 1,000 ML IV SCH (18:45)
[2018-11-10] MEDS ORDERED: LORazepam 2 MG/ML INJ IVP PRN (20:01)
--- NOTE | 2018-11-10 21:40 | ASMTLCPROG ---
Notes Note: Notes: PT was listed as moderate/severe risk on [facility] assess. Per protocol [place] sclae was done, physician concurred with scale and wanted pt placed on an hold and full psychiatric evaluation to before pt leaves the hospital. Pt reported a previous hanging attempt in March 2018. that was interupted but he has not recieved any MH interventions, or seen a therapist. Pt reports active thoughts of wanting to and killing himself as well as active HI/SI thoughts and plan to kill the physican who dc'd him from chronic pain mgmt and then force a sucide by asbestos microscopist situation. Pt does not know that he will not be recieving any narcotics yet and is emotional, dramatic, and impulsive. A TLC eval will need to be completed prior to DC; additionally there may be an ethical duty to warn situation. Date Signed: 11/10/2018 09:39 PM Electronically Signed By:Biju Garcia
[2018-11-10] MEDS: levETIRAcetam 500 MG TAB PO SCH (21:54)
[2018-11-11] MEDS: IBUPROFEN 200 MG TAB PO PRN ×3 (08:40→23:16)
[2018-11-11] MEDS: ACETAMINOPHEN 325 MG TAB PO PRN ×2 (08:40→13:46)
[2018-11-11] MEDS: levETIRAcetam 500 MG TAB PO SCH (08:41)
[2018-11-11] MEDS ORDERED: Herbals/Supplements -Info Only PO SCH (09:00)
--- NOTE | 2018-11-11 11:02 | NEUROPROG ---
Assessment: [id number] - Neurology Consult: - CC: Dr. Caldwell consulted neurology for seizure. Results placed in EMR for his review. - HPI: 11/11/18: Pt with possible seizure disorder on Keppra 500 mg bid followed by my partner, Dr. Kishor Sanon. He was reported to have developed seizure like spells in June 2018 after beginning tramadol (pt had chronic pain). Pt no longer using tramadol. He has noted several seizure like spells per week since then (x3/week). He reported on 11/10/18 he had multiple seizure like spells w/o any clear cause (denied drug/alcohol use). Prior brain MRI in July 2018 unremarkable. He presented to [facility] ER on 11/10/18 where he had a witnessed seizure like spell. He was given IV keppra 1,000 mg and ativan. He was sedated after this so he was admitted for observation. Neurologic exam on was normal and he felt much improved. His Utox was positive for PCP but pt denied drug use so this finding is of unclear significant. Otherwise no concerning finding with normal head CT. I also recommended avoiding all drugs and alcohol as they can increase chance of seizure. Pt also reported he felt suicidal due to his pain doctor no longer giving him pain medications. Mental health evaluation ordered. Keppra can cause suicidal thoughts so I recommended changing Keppra to gabapentin 300 mg TID for seizure prevention and to possibly help with chronic pain. I will order an EEG for tomorrow to help elicit if he is having epileptic seizures or another cause of his seizure like spells. - PMHx: chronic pain on opiates, spinal degen disease, prediabetes, seronegative spondyloarthopathy, seizure disorder, left knee surgery - SHx: +tobacco FHx: no seizures - ROS: Pt denied acute fever, total vision loss, active severe chest pain, respiratory failure, total body severe rash, total bowel/bladder incontinence, psychosis, active seizures, or active bleeding - O: VS reviewed General: Alert Eyes: Fundoscopic exam not able to visualize optic disks CV: Heart RRR, no murmur, no carotid bruit Lungs: Clear to auscultation bilaterally, no rhonchi or rales Neuro: - Mental: . Oriented x person/place/date . concentration appears normal . speech fluency/comprehension normal . memory appears normal . fund of knowledge appear intact - Cranial Nerves: . II: PERRL, VFFTC . III/IV/: EOMI, no nystagmus, normal smooth pursuits, no Ptosis . V: facial sensation intact to LT . VII: face symmetric to eye closure and smile . VIII: hearing intact to conversation . IX/X: uvula raises symmetrically . XI: SCM 5/5 B/L strength . XII: tongue protrudes midline w/nl strength - Motor: . Tone: normal tone in all 4 extremity . Strength: no pronator drift, strength 5/5 throughout (B/L delt, bic, tri, hand scratch polisher, hf/he, df/pf) - Reflexes: B/L bic 2/4 - Sensory: all 4 extremity intact to light touch - Coord: bibwmq-[id number] wnl, SARAH wnl, jtbp-of-ynil wnl - Gait: deferred - Labs: 11/10/18- Na 143 - Rads: 08/07/2018- Brain MRI wwo: possible arachnoid cyst, no abnormality that seems likely to cause seizures 11/10/18- Head CT wo: no acute intracranial abnl (I personally visualized the images on 11/11/18) - Assessment: 1. Possible Seizure Disorder - 2. Suicidal Thoughts - Plan: - Stop Keppra as it may be worsening suicidal thoughts - Begin gabapentin 300 mg TID for seizure prevention - Seizure Precautions and no driving until seizure free for 90 days - EEG in hospital - Agree with mental health consult to address suicidal thoughts Objective: Vital Signs Temp Pulse Resp BP Pulse Ox 36.8 C 98 23 H 120/79 94 11/11/18 04:00 11/11/18 08:00 11/11/18 08:00 11/11/18 08:00 11/11/18 08:00 11/10/18 11/11/18 11/12/18 05:59 05:59 05:59 Intake Total 200 Balance 200 Allergies/Adverse Reactions: No Known Allergies Allergy (Verified 08/02/18 11:32)
[2018-11-11] MEDS: LORazepam 1 MG TAB PO PRN ×2 (11:41→15:45)
--- NOTE | 2018-11-11 12:14 | PDMN ---
Medical Necessity Medical necessity: [facility] General Admission: 48 yo admitted w/ poss seizure. Initially OBS for workup/tx and neuro consult. Upon arrival to floor pt began w/ suicidal and homicidal ideation - placed on M1 hold, transfer to ICU, psych consult. Meets [facility] IP criteria for general admit w/ severe behavioral health issues judged unmanageable at lower level of care w/ SI/HI ideation as above. Change to IP status 11/11/18@1117 per MD order. Hx chronic pain w/ opioid dependence, seizure d/o, spinal degenerative disk disease, questionable pre DM and seronegative spondyloarthropathy.
[2018-11-11] MEDS: HYDROCODONE/APAP 5/325 TAB PO PRN ×2 (12:26→20:13)
--- NOTE | 2018-11-11 15:16 | HOSPPROG ---
Hospitalist Progress Note Assessment/Plan: 1. Possible seizures: I reviewed the patients MRI/CT showing no acute abnormality on my read. He had seizure like activity in front of me but was able to spontaeously stop when I asked him a qestion and then was not post ictal. Discussed with neurology who is recommending an EEG, and continuing current management. - Neurology consulted- EEG tomorrow, seizure precautions - s/p 500mg IV keppra in ED, will continue keppra 500mg bid - Checking keppra level- pending - utox negative - Ativan IV PRN for active seizures 2. Suicidal and homicidal ideation: He contracts for safety while in the hospital but plans to kill his prior pain doctor and then via suicide by molecular spectroscopist if he leaves. - M1 hold in place, transferred to ICU - Psychiatry consult -remains suicidal and wants to kill his pain doc. 3. Chronic pain with opioid dependence - No opioids or benzos (except for seizure) - Tylenol, ibuprofen PRN - 4. Anxiety - Will likely need to be started on medications for this while hospitalized VTE ppx: SCDs Code: full Dispo: remain ICU for SI possible seizure. I spent a total of 40 minutes of critical care time involving this patient. Subjective: bad sciatica pain, remains with SI and HI Objective: Vital Signs Temp Pulse Resp BP Pulse Ox 36.7 C 82 16 118/76 91 L 11/11/18 13:32 11/11/18 13:32 11/11/18 13:32 11/11/18 13:32 11/11/18 13:32 - Physical Exam Constitutional: no apparent distress, appears nourished, not in pain Eyes: PERRL, anicteric sclera, EOMI Ears, Nose, Mouth, Throat: moist mucous membranes, hearing normal, ears appear normal, no oral mucosal ulcers Cardiovascular: regular rate and rhythym, no murmur, rub, or gallop Respiratory: no respiratory distress, no rales or rhonchi, clear to auscultation Gastrointestinal: normoactive bowel sounds, soft, non-tender abdomen, no palpable masses Genitourinary: no bladder fullness, no bladder tenderness, no renal bruits Skin: no rashes or abrasions, no fluctuance, no induration Musculoskeletal: full muscle strength, no muscle tenderness, normal joint ROM Neurologic: AAOx3, sensation intact bilaterally Psychiatric: interacting appropriately, not encephalopathic, thought process linear, anxious, suicidal ideation Lymph, Heme, Immunologic: no cervical LAD, no supraclavicular LAD ICD10 Worksheet Patient Problems: Problems Problem Status Onset Status epilepticus Acute
[2018-11-11] MEDS: GABAPENTIN 300 MG CAP PO SCH ×2 (15:45→23:16)
[2018-11-11] MEDS: NICOTINE 14 MG/24 HR PATCH TD SCH (15:45)
--- NOTE | 2018-11-11 16:52 | ASMTCMCOM ---
CM Note CM Note Notes: CM spoke with pt in the room and with pt's RN. Pt's mother is a former CM at [facility] and she is currently out of town. Pt admitted for reported frequent seizures and suicidal/homicidal ideation which he attributes to chronic pain and "having a legitimate medical condition for 20 years that is not being treated." Pt is on an M1-Hold and was evaluated by [facility]. CM approached pt with intention to help connect him with a PCP and possibly refer him to a chronic pain clinic. Pt reports being discharged from his previous pain clinic. Pt reports that he has recently started treatment with PCP Felicita Blanchard at [place]. CM inquired if pt was interested in a mind/body approach to chronic pain management which is now being offered by [facility]. CM emphasized that it would not involved increased narcotic prescriptions. Pt initially expressed interest, but then presented CM with a notebook full of articles that support his belief that "overprescribing is a myth" and that the war on drugs is causing more suicide and due to undertreatment of legitimate pain. Pt repeatedly insisted that his medical condition is not being adequately treated and is uninterested in psychotherapy to help him cope. Psychiatric consult and behavioral health RN have both been consulted and will likely eval on Monday. Pt also to undergo EEG Monday to investigate reported seizures. CM could still possibly identify a pain management clinic on Monday that may have openings. D/C Plan: TBD Date Signed: 11/11/2018 04:51 PM Electronically Signed By:Rosibel Hudson. BRUNILDA
[2018-11-12] MEDS: HYDROCODONE/APAP 5/325 TAB PO PRN (06:37)
--- NOTE | 2018-11-12 09:32 | NEUROPROG ---
Assessment: 1. Chronic pain 2. Convulsions NOS 35 total minutes floor time; over 50% counseling and coordination of care. This patient has a history of chronic pain and opiate use in the past. He is had some trouble with his pain physicians. I reviewed all outpatient and inpatient records. He may have had 2 provoked seizures in June from tramadol. Not clear. MRI brain showed no epileptogenic abnormalities he has a well-known posterior cyst/arachnoid cyst. The patient presented with "5 grand mal" seizures to the ER. The ER witnessed 1 event where the patient was responsive during the convulsion, they felt it may be nonepileptic. Indeed the hospitalist made the same observation that there is no postictal phase and it seemed atypical for seizure and more likely behavioral. We are doing a routine EEG now in the hospital to screen for any epileptiform abnormalities. My colleague switched him from Keppra to gabapentin due to suicidal thoughts. The patient denies any actual side effects from Keppra any specific mood changes related medication. However, I think this is a very reasonable medication change. Going forward, I recommend the followin. Indefinite driving restrictions and seizure precautions. He is agreeable. 2. Gabapentin 300 mg three times daily going forward as an outpatient. 3. If the EEG is normal, I recommend consultation with [facility] department Neurology for consultation and admission to their epilepsy monitoring unit for spell classification. We need to get an accurate diagnosis earliest possible. The the patient and his mother were given contact information for [facility] department of Neurology. If the EEG is abnormal, I will speak with the patient again and discuss and make recommendations accordingly. Otherwise, he may discharge later today if the EEG is normal. The plan was discussed with the hospital Medicine team. I will communicate with Dr. Sanon as well regarding this patient. No further recommendations. Please do not hesitate to call for any questions or changes in neurologic status with this patient. Subjective: No further events Objective: Vital Signs Temp Pulse Resp BP Pulse Ox 36.9 C 78 14 107/58 L 90 L 11/11/18 23:20 11/11/18 23:20 11/11/18 20:00 11/11/18 23:20 11/12/18 04:00 11/11/18 11/12/18 11/13/18 05:59 05:59 05:59 Intake Total 1350 Balance 1350 Patient is awake and alert No focal findings Allergies/Adverse Reactions: No Known Allergies Allergy (Verified 08/02/18 11:32)
[2018-11-12] MEDS: NICOTINE 14 MG/24 HR PATCH TD SCH (10:02)
[2018-11-12] MEDS: GABAPENTIN 300 MG CAP PO SCH (10:02)
--- NOTE | 2018-11-12 11:15 | HOSPPROG ---
Hospitalist Progress Note Assessment/Plan: 1. Possible seizures: I reviewed the patients MRI/CT showing no acute abnormality on my read. He had seizure like activity in front of me but was able to spontaeously stop when I asked him a qestion and then was not post ictal. Discussed with neurology who is recommending an EEG, and continuing current management. - Neurology consulted- I discussed with them, EEG normal. - Keppra stopped, transitioned to gabapentin 300 TID. - Checking keppra level- pending - utox negative - Ativan IV PRN for active seizures -medically cleared today 2. Suicidal and homicidal ideation: He contracts for safety while in the hospital but plans to kill his prior pain doctor and then via suicide by copywriting intern if he leaves. - M1 hold in place, transferred to ICU - Psychiatry consult -remains suicidal and wants to kill his pain doc. - I discussed with TLC, they will evaluate and if needed transfer today. 3. Chronic pain with opioid dependence - No opioids or benzos (except for seizure) - Tylenol, ibuprofen PRN 4. Anxiety - Will likely need to be started on medications for this while hospitalized VTE ppx: SCDs Code: full Dispo: remain ICU for SI and HI patient medically cleared but remains suicidal and homicidal and is high risk Subjective: no physical complaints Objective: Vital Signs Temp Pulse Resp BP Pulse Ox 36.9 C 83 20 140/83 H 96 11/11/18 23:20 11/12/18 08:00 11/12/18 08:00 11/12/18 08:00 11/12/18 08:00 11/11/18 11/12/18 11/13/18 05:59 05:59 05:59 Intake Total 1350 Balance 1350 - Physical Exam Constitutional: no apparent distress, appears nourished, not in pain Eyes: PERRL, anicteric sclera, EOMI Ears, Nose, Mouth, Throat: moist mucous membranes, hearing normal, ears appear normal, no oral mucosal ulcers Cardiovascular: regular rate and rhythym, no murmur, rub, or gallop Respiratory: no respiratory distress, no rales or rhonchi, clear to auscultation Gastrointestinal: normoactive bowel sounds, soft, non-tender abdomen, no palpable masses Genitourinary: no bladder fullness, no bladder tenderness, no renal bruits Skin: no rashes or abrasions, no fluctuance, no induration Musculoskeletal: full muscle strength, no muscle tenderness, normal joint ROM Neurologic: AAOx3, sensation intact bilaterally Psychiatric: interacting appropriately, not anxious, not encephalopathic, thought process linear Lymph, Heme, Immunologic: no cervical LAD, no supraclavicular LAD ICD10 Worksheet Patient Problems: Problems Problem Status Onset Status epilepticus Acute
[2018-11-12] MEDS: IBUPROFEN 200 MG TAB PO PRN (11:33)
--- NOTE | 2018-11-12 12:21 | CPEEG ---
[f rep st] ELECTROENCEPHALOGRAM DATE OF STUDY: INTERPRETATION: Normal EEG during wakefulness and drowsiness. There were no potentially epileptogen ic abnormalities present during the recording. REPORT: This EEG contains 10 Hz alpha activity over the posterior head regions. The background acti vity was normal and symmetric. There was no abnormal activation at rest. The patient intermittently became drowsy during the study. There was no abnormal activation during drowsiness or during times of arousal. /[id number]/MODL
[2018-11-12 13:44] VITALS: BP 124/67
--- NOTE | 2018-11-12 15:09 | ASMTDCNOTE ---
Case Management Discharge Discharge Order Complete? Answers: Yes Patient to Obtain Answers: via Family Medications Transportation Arranged Answers: Family/Friends Family Notified Answers: Yes Discharge Comments Notes: CM spoke with [facility] who does not feel pt meets criteria for inpatient behavioral health admission. CM spoke with MD and he is going to discharge pt. Neurology instructed pt to follow-up at and pt reports he has that information and does not need assistance making an appt. CM offered to make pt follow-up appts and pt declined. Said she would reach out to his PCP if he needed anything. [facility] reports they contacted the MD pt was threatening and also spoke with police, see [facility] notes for more information. CM spoke with pt's mom who feels comfortable with him being discharged and reports no concerns. CM completed safety plan with pt and provided list of MH resources, counseling center, and number for crisis lines. No other CM needs identified at this time. Pt discharged independently. Date Signed: 11/12/2018 03:07 PM Electronically Signed By:MARIFER Callejas
--- NOTE | 2018-11-12 15:49 | ASMTTLCEVL ---
[facility] Evaluation - Basic Information Evaluation Start Date and 11/12/2018 12:00 PM Time Hospital Status Answers: M1 Hold 72-hr M1 Hold Start Date 11/10/2018 08:45 PM and Time Patient statement Notes: "started as a eries of what I thought were seizures. So I called my primary care doctor but they were closed so i called the on-call nurse who told me to call 911. I ended up calling a friend and she brought me here." Narrative Notes: Pt is a 48 year old male who presented to [facility] with a friend after complaining of 5"grand mal seizures" onset 0330 on 11/10/18. Pt reported he started having seizures in June 2018 and was seen at [facility]. After the seizure, pt was seen by Dr. Meléndez an he a negative work up including numerous imaging studies. Today he reported he had "five grand mal seizures" and hit his head. Pt was admitted to ICU for status epileptic us. When pt was in ICU, there was a [facility] stat call after pt told nursing staff that he was having homicidal and suicidal thoughts. Per the M1 hold, " Pt reports active thoughts and planning to kill the doctor and kill himself. The doctor at the clinic who discharged him denying pain meds. Pt reports active thoughts at wanting to and reported in March 2018, he attempted to hang self and was interrupted by mother. Pt has not received any MH intervention." Pt was medically cleared for mental health evaluation on 11/11/18. Pt reports that he has been in various pain management clinics since 1999 after he had a work accident and a "car transmission" fell on him and he injured his back. Pt stated over the past 7-8 months " I'm going through hard times." Over time, his back pain worsened and eventually was placed on narcotic pain medication. Pt stated in March 2018, his doctor at the pain management clinic "decided not to see me anymore." Pt stated the doctor "wrote a note in my chart saying I agreed to be discharged which isn't true. " Pt also stated he may have been discharged because, " I tested positive for tramadol." Pt was asked if he stated he wanted to "suicide by coping machine operator" as noted in [facility] progress reports. Pt stated, " I don't remember saying that. I don't want my mom to see me . I mean I don't have a gun." Pt stated he needs to be on narcotics to manage his pain and "nothing else works." Pt stated he has "tried everything else." Diagnosis History Notes: Pt stated he was told he has depression, "but they never treated me." Prior suicide attempts Notes: Pt denies and stated, " Not officially. I've though about it." Per M1, Pt had a suicide attempt by hanging in March 2018. Prior hospitalizations Notes: Pt denied Treatment Responses Notes: n/A History of violence Notes: Pt reportedly stated he wanted to kill his doctor that discharged him from his pain management clinic. Pt told this engineering technical writer, " Honestly, yeah I want to hurt him but I don't have any plans. Before I go to bed I think about how I want him to be made aware of what kind of life he has sentenced me to. When he made this decision, he probably spent 2 seconds thinking about me. Now he probably never thinks about me." Note: Duty to warn made. This engineering technical writer initially contacted [facility] to attempt to reach Ck Gaspar but was told he retired. This engineering technical writer spoke with campus receptionist Ava and informed her I had a duty to warn and she stated she would reach out to Ck Gaspar and have him contact me directly. This engineering technical writer spoke directly with Ck Chasity and warned him about pt's threats. Ck informed that pt was discharged from his clinic for harassment approx 6 months ago. Ck stated" pt has filed complaints with Medicaid, medical board and even wrote to the President complaining about not being able to receive pain medication." This engineering technical writer contacted [place] [employer] to report threat and spoke with Officer Adonis. Ofcr Adonis stated he wasn't going to make a police report because pt hasn't directly threatened Ck , however he will put his name in the police database. Therapist: None Psychiatrist: None Medications (name, dosage, route, freq uency) Notes: Gabapentin, Kepra, tazanidine Allergies/Reaction Notes: Nka Sleep Notes: Pt stated he does not sleep well because of his chronic pain. Appetite Notes: wnl Medical/Surgical history Notes: Pt reported a hx. of arthritis, joint problems and spinal stenosis, chronic pain. Pt stated in 1995, a car transmission fell on him and this his how he sustained his injuries. Substance use history (frequency, intensity, his tory, duration) Notes: Pt denied any substance use. Pt denied any etoh use. Pt's utox was negative for all substances. Family composition Notes: Pt stated he has one older sister who lives in [place]. Family psychiatric/substance abuse history Notes: Unknown. Pt is adopted. Developmental history Notes: Pt was adopted at and was raised in [place]. Pt denied any ADHD dx. Pt denied any concussions/LOC and denied any childhood abuse hx. Abuse concerns Answers: None Marital status/children Notes: Unmarried, no children. Living situation Notes: Pt lives with his mother in [place]. Sexual history/orientation Notes: Pt did not identify his sexual orientation. Peer support/family strengths Notes: Pt stated, " Just my mom and her friends. 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 Work history Notes: Pt does not work. pt stated he is not on disability Notes: None Legal Notes: Pt denied Presybeterian/Spiritual Notes: None that would interfere with tx. Leisure Notes: Pt stated he enjoys hiking and working on cars Collateral Notes: Mother Doris Briggs stated she does not have any concerns that pt will harm himself or will act on his threts to his former [place] Ck Gaspar. She stated, " It's like saying, Oh I could kill someone." Brigitte stated she is concerned about pt's chronic pain and wishes she can "fix it." Patient's strengths Answers: Artistic/Creative/Musical (Please select at least TWO strengths): Willingness TLC Evaluation - Mental Status Exam Appearance: Answers: Appropriate Eye Contact: Answers: Intermittent Mood: Answers: Euthymic Affect: Answers: Guarded Behavior: Answers: Cooperative Guarded Resistive to Care Speech: Answers: Relevant Logical Clear Coherent Thought Process: Answers: Organized Oriented Alert Intact Insight: Answers: Poor Judgement: Answers: Poor Depression Answers: Diminished Interest Signs/Symptoms: Hallucinations: Answers: None Pt reported to have Answers: No suicidal/self-injuring ideation/behavior? Pt reported to be making Answers: Yes suicidal/self-injuring threats? Pt reported to have Answers: No aggression/assault ideation/behavior? Pt reported to be making Answers: Yes aggression/assault threats? Pt exhibits inability to Answers: No care for self/grave disability? Ideation/behavior is Answers: No chronic? Patient has a specific Answers: No plan? Pt has access to means to Answers: No execute the plan? History of Answers: Yes suicidal/self-injuring ideation, behavior, or threats? [facility] Evaluation - Suicide/Homicide Risk Suicide Risk Factors: Answers: Alcohol/Heavy Drug Use Cluster "B" D/O or Traits Lack of Social Support Lack/Loss of Employment Prior Suicide Attempt(s) Serious Health Issue, Pain Homicide/violence risk Answers: Threats Towards Others factors: Current Suicidal Answers: No Ideation? Current Suicidal Ideation Answers: No in the Past 48 Hours? Current Suicidal Ideation Answers: No in the Past Month? Current Suicidal Answers: No Ideation, Worst Ever? Suicide Internal Answers: Absence of Psychosis Protective Factors: Suicide External Answers: Responsibility to Pets Protective Factors: Social Support Ranking of patient's Answers: Low suicidal risk: Ranking of patient's Answers: Moderate homicidal risk: TLC Evaluation - Wrap-up BDI Total Score: 15 BDI Question #2 Score: 0 BDI Question #9 Score: 0 BSS Total Score: 0 AXIS I Diagnosis (include DSM-V and ICD-10 codes), must also be entered in [employer], which is the source of truth. Notes: Unspecified Other (or Unknown) Substance Related Disorder 292.9(F19-99) Unspecified Depressive Disorder 311 (F32.9) Cluster B Traits In consultation with [facility] on-call psychiatrist, Jovanni Barrera MD, concurred that pt does not appear to meet 27-65 criteria requiring psychiatric hospitalization as pt does not appear to be at risk of harm to self/others/gravely disabled due to a mental illness condition. Evaluation End Date and 11/12/2018 03:45 PM Time (HH:CHASIDY): Date Signed: 11/12/2018 03:47 PM Electronically Signed By:Diandra Orr
--- NOTE | 2018-11-12 15:57 | ASMTTCLDSP ---
TLC Discharge Disposition Disposition: Answers: Discharge If Answers: Yes DISCHARGED: Patient/family given suicide hotline info & SAMHSA brochure? Discharge Concerns/Recommendations: Notes: In consultation with [facility] on-call psychiatrist, Jovanni Barrera MD, concurred that pt does not appear to meet 27-65 criteria requiring psychiatric hospitalization as pt does not appear to be at risk of harm to self/others/gravely disabled due to a mental illness condition. . Psychiatrist vacating M1 Jovanni Barrera MD Hold: Date and time M1 hold 11/12/2018 01:40 PM vacated (time format is hh:mm): Date Signed: 11/12/2018 03:56 PM Electronically Signed By:Diandra Orr
--- NOTE | 2018-11-12 16:44 | PDDCSUM ---
Discharge Summary Discharge Summary: Discharge diagnosis Seizure Homicidal ideation Suicidal ideation Chronic opioid dependence Chronic back pain Patient was admitted after having multiple seizure-like episodes. CT head was obtained in the emergency room which showed no acute intracranial abnormality. He was given Ativan p.r.n. For seizures. He was continued on his home Keppra and Neurology was consulted. Neurology felt that this episodes were not consistent with epileptic seizures. An EEG was obtained which showed no epileptic activity. He was recommended by Neurology to follow up with Neurology at [facility] for further evaluation of his seizure-like activity. The patient was also complaining of suicidal ideation and homicidal ideation saying that he wanted to kill his previous pain medicine doctor. After being medically cleared he was evaluated by TLC who also cleared the patient saying he no longer had suicidal or homicidal ideations. However TLC contacted the local police department to warn them given the patient's previous homicidal ideation. The patient was transitioned to gabapentin 300 mg three times daily by Neurology and his Keppra was stopped as that was thought to possibly be contributing to his aggressive behavior. He was discharged home to follow up with Neurology [facility] along with his primary care physician. Disposition Home independent New medications Keppra stopped Gabapentin 300 mg three times daily I spent over 30 min on the discharge of this patient
== END 2018-11-12 15:00 | disposition home or self-care (01) | DRG 53 ==
LOC: EEVIPCON 17:36 → F3N 18:54 → F2N 21:36 → OBSVTOIN 11-11 11:17 → F2N 11-11 16:16
PROVIDERS: ADMIT Internal Medicine; ATTEND Internal Medicine
DX: G40.909 Epilepsy, unspecified, not intractable, without status epilepticus (principal); R45.851 Suicidal ideations; F11.20 Opioid dependence, uncomplicated; R45.850 Homicidal ideations; T42.6X5A Adverse effect of other antiepileptic and sedative-hypnotic drugs, initial encounter; G89.29 Other chronic pain; M54.9 Dorsalgia, unspecified; E86.9 Volume depletion, unspecified; Z72.0 Tobacco use; F41.9 Anxiety disorder, unspecified
CPT/HCPCS: 80177-90; 82435-PO; 82565-PO; 82947-PO; 84132-PO; 84295-PO; 84520-PO; 85014-ER; 96365; G0378; G0480; J1953; J2060